=== PATIENT | female | born 1955 | race Caucasian/White ===

== ENCOUNTER 2016-11-08 12:51 | Emergency (ER) | payer MEDICARE, MEDICAID ==
[2016-11-08] MEDS: IPRATROPIUM/ALBUTEROL (0.5MG/3MG) NEB INH ONE (13:04)
--- NOTE | 2016-11-08 13:34 | Emergency Department Record ---
History of Present Illness - General Chief Complaint: Difficulty Breathing Stated Complaint: JOSH Time Seen by Provider: 11/08/16 13:30 Source: Patient Mode of Arrival: Ambulatory Limitations: No limitations - History of Present Illness Initial Comments: 60 yo female presents with cough, congestion, wheezing, weakness, diarrhea since . She has a history of COPD in the past. She tried her home treatments but her wheezing continued. NO fever. NO chest pain. She has been coughing up somewhat greenish sputum. No blood. MD Complaint: Cough, Shortness of breath Onset/Timin -: Hour(s) Severity: Moderate Consistency: Getting worse Improves With: Bronchodilators, Rest, Upright position Worsens With: Coughing, Lying flat Known History Of: COPD Associated Symptoms: Cough, Sputum production Treatments Prior to Arrival: Bronchodilator - Related Data Home Oxygen Therapy: No Home Medications Medication Instructions Recorded Confirmed Last Taken Albuterol Sulfate [Proair Hfa] 1 - 2 puff IH .EVERY 4-6 HOURS PRN 06/17/1511/0811/08/16 Benazepril HCl [Lotensin] 20 mg PO DAILY 06/17/15 11/08/16 11/08/16 Duloxetine HCl [Cymbalta] 60 mg PO DAILY 06/17/15 11/08/16 11/08/16 Levothyroxine Sodium [Synthroid] 25 mcg PO DAILY 06/17/15 11/08/16 11/08/16 Mometasone/Formoterol [Dulera 200 8.8 gm IH DAILY 06/17/15 11/08/16 11/08/16 Mcg/5 Mcg Inhaler] Tiotropium [place] [Spiriva] 18 mcg IH DAILY 06/17/15 11/08/16 11/08/16 Celecoxib [Celebrex] 100 mg PO DAILY cap 04/14/16 11/08/16 11/08/16 Hydrocodone/Acetaminophen [Shepherd 1 tab PO Q6H PRN 11/08/16 11/08/16 11/08/16 10mg/325mg] Previous Rx's Medication Instructions Recorded Albuterol Sulfate 0.083% [Neb] 3 ml NEB .EVERY 4-6 HOURS PRN #30 11/08/16 ml Azithromycin [Zithromax] 250 mg PO DAILY #4 tab 11/08/16 Benzonatate [Tessalon] 1 cap PO Q8H PRN #20 cap 11/08/16 Prednisone [Prednisone 20Mg] 20 mg PO BID #10 tab 11/08/16 Allergies Allergy/AdvReac Type Severity Reaction Status Date / Time amoxicillin trihydrate AdvReac Intermediate DIARRHEA Verified 11/08/16 13:01 [From Augmentin] ibuprofen [From Motrin] AdvReac Intermediate SWELLING Verified 11/08/16 13:01 (GENERAL) potassium clavulanate AdvReac Intermediate DIARRHEA Verified 11/08/16 13:01 [From Augmentin] Travel Screening - Travel/Exposure Within Last 30 Days Have you traveled within the last 30 days?: No - Travel/Exposure Within Last Year Have you traveled outside the [place] in the last year?: No - Additonal Travel Details Have you been exposed to anyone with a communicable illness?: No - Travel Symptoms Symptom Screening: None Review of Systems Constitutional: Reports: Chills, Fever, Malaise, Weakness Eyes: Denies: Eye discharge, Eye pain, Photophobia, Vision change ENT: Reports: Congestion Respiratory: Reports: Cough, Dyspnea, Wheezes Cardiovascular: Denies: Chest pain, Palpitations, Syncope Endocrine: Reports: Fatigue Gastrointestinal: Reports: Diarrhea. Denies: Abdominal pain, Vomiting Genitourinary: Denies: Dysuria, Hematuria, Urgency Musculoskeletal: Denies: Arthralgia, Back pain, Myalgia, Neck pain Skin: Denies: Bruising, Change in color, Rash Neurological: Denies: Headache, Numbness, Tremors, Vertigo, Weakness Psychiatric: Denies: Anxiety Hematological/Lymphatic: Denies: Blood Clots, Easy bleeding, Easy bruising, Swollen glands Past Medical History - SOCIAL HISTORY Smoking Status: Heavy tobacco smoker (>10/day) Alcohol Use: None Drug Use: None - RESPIRATORY Hx Respiratory Disorders: Yes Hx Asthma: Yes (CONTROLLED) Hx COPD: Yes - CARDIOVASCULAR Hx Cardio Disorders: Yes Hx Edema: Yes Hx Hypertension: Yes Comment:: SEEN AT [facility] 08/16/19 FOR PAIN IN RT SHOULDER AND BACK RULED GALLBLADDER - NEURO Hx Neuro Disorders: No - GI Hx GI Disorders: Yes Hx Abdominal Pain: Yes (SEEN AT [facility] FOR GB ATTACK) - Hx Genitourinary Disorders: Yes Hx Bladder Problem: Yes (bladder sling) Comment:: STILL LEAKING WITH COUGH - ENDOCRINE Hx Endocrine Disorders: Yes Hx Thyroid Disease: Yes - MUSCULOSKELETAL Hx Musculoskeletal Disorders: Yes Hx Arthritis: Yes (HANDS KNEES HIPS) Comment:: STILL WEAKNESS HANDS - PSYCH Hx Psych Problems: No - HEMATOLOGY/ONCOLOGY Hx Hematology/Oncology Disorders: No Family Medical History Any Significant Family History?: No Physical Exam - General General Appearance: Alert, Oriented x3, Cooperative, No acute distress Limitations: No limitations - Head Head exam: Normal inspection - Eye Eye exam: Normal appearance, PERRL. negative: Conjunctival injection - ENT ENT exam: Normal exam Ear exam: Normal external inspection Nasal Exam: Normal inspection Mouth exam: Normal external inspection Teeth exam: Normal inspection Throat exam: Normal inspection - Neck Neck exam: Normal inspection, Full ROM. negative: Tenderness - Respiratory Respiratory exam: Decreased breath sounds, Rhonchi, Wheezes. negative: Normal lung sounds bilaterally, Chest wall tenderness, Respiratory distress - Cardiovascular Cardiovascular Exam: Regular rate, Normal rhythm, Normal heart sounds Peripheral Pulses: 2+: Radial (R), Radial (L) - GI/Abdominal GI/Abdominal exam: Soft. negative: Guarding, Tenderness - Rectal Rectal exam: Deferred - exam: Deferred - Extremities Extremities exam: Normal inspection, Full ROM, Normal capillary refill. negative: Pedal edema, Tenderness - Back Back exam: Reports: Normal inspection, Full ROM. Denies: Muscle spasm, Rash noted, Tenderness - Neurological Neurological exam: Alert, Normal gait, Oriented X3 - Psychiatric Psychiatric exam: Normal affect, Normal mood. negative: Agitated, Anxious - Skin Skin exam: Dry, Intact, Normal color, Warm Course Vital Signs 11/08/16 11/08/16 13:05 13:06 Temperature 97.9 F Pulse Rate 100 H 88 Respiratory 24 24 Rate Blood Pressure 100/75 Pulse Ox 97 96 - Reevaluation(s) Reevaluation #1: EKG NSR, intervals normal, axis normal, ST no acute changes. No changes from the prior 11/08/16 13:34 Reevaluation #2: The patient is greatly improved She is up ambulating without shortness of breath She still has some occasional cough but this is dramatically better since the Duoneb treatments and steroids She is not hypoxic. She will be provided Zithromax in the ED, and and a prescription for Prednisonse , Tessalon and her Albuterol nebulized. The patient was informed of her labs and the need to see her doctor this week for a recheck and to stay hydrated 11/08/16 15:37 11/08/16 15:50 Medical Decision Making - Lab Data Result diagrams: 11/08/16 13:40 11/08/16 13:40 Disposition Disposition: Discharge Clinical Impression: COPD exacerbation Disposition: Home, Self-Care Condition: (1) Good Instructions: COPD Exacerbation, [employer] (GEN) Additional Instructions: Call your doctor tomorrow for close follow up Return immediately if you have fever, shortness of breath or pain Take the Zithromax, Prednisone, and Tessalon as directed. Prescriptions: Albuterol Sulfate 0.083% [Neb] 3 ml NEB .EVERY 4-6 HOURS PRN #30 ml PRN Reason: Difficulty In Breathing Prednisone [Prednisone 20Mg] 20 mg PO BID #10 tab Benzonatate [Tessalon] 1 cap PO Q8H PRN #20 cap PRN Reason: Cough Azithromycin [Zithromax] 250 mg PO DAILY #4 tab Forms: Patient Portal Access Time of Disposition: 15:44
[2016-11-08] MEDS: ALBUTEROL SULFATE (0.083%) 2.5 MG/3 ML NEB INH ONE (13:42)
[2016-11-08] MEDS: METHYLPREDNISOLONE PF 125MG/VIAL IVP SCH (13:47)
[2016-11-08 13:52] LABS: HEMATOCRIT 34.7 % (35.0-47.0); HEMOGLOBIN 11.9 gm/dl (11.6-16.0); MEAN CELL VOLUME 90.1 fl (81-97); MEAN CORPUSCULAR HEMOGLOBIN 30.9 pg (27-33); MEAN CORPUSCULAR HGB CONC 34.3 g/dl (32-36); MEAN PLATELET VOLUME 9.5 fl (7.4-10.4); PLATELET COUNT 379 K/uL (130-400); RED BLOOD COUNT 3.85 M/uL (3.80-5.40); RED CELL DISTRIBUTION WIDTH 16.6 % (11.5-14.5); WHITE BLOOD COUNT W/O DIFF 12.6 K/uL (4.2-12.2)
[2016-11-08 14:05] LABS: ALB/GLOB RATIO 1.1 (1.1-1.8); ALBUMIN 3.9 gm/dL (3.5-5.0); ALKALINE PHOSPHATASE 139 U/L (38-126); ALT/SGPT 71 U/L (9-52); ANION GAP 9.1 (7-16); AST/SGOT 36 U/L (14-36); BLOOD UREA NITROGEN 37 mg/dL (7-17); CARBON DIOXIDE 20.9 mmol/L (22-30); CREATININE 1.3 mg/dL (0.52-1.04); EST GLOMERULAR FILTRATION RATE 45 ml/min; GLUCOSE,RANDOM 105 mg/dL (70-110); TOTAL PROTEIN 7.4 gm/dL (6.3-8.2)
[2016-11-08 14:09] LABS: INR 0.97; PARTIAL THROMBOPLASTIN TIME 25.4 SECONDS (24.5-39.1)
[2016-11-08 14:16] LABS: PLATELET ESTIMATE NORMAL (NORMAL)
[2016-11-08 14:47] LABS: TROPONIN I < 0.012 ng/mL (0.00-0.034)
[2016-11-08] MEDS: AZITHROMYCIN 500 MG TABLET PO ONE (15:52)
--- NOTE | 2016-11-11 15:07 | RADIOLOGY REPORT ---
EXAM: CHEST HISTORY: PRODUCTIVE COUGH AND SHORTNESS OF BREATH. TECHNIQUE: Two views of the chest were obtained. Comparison: 04/14/16. FINDINGS: The heart is not enlarged and there is no mediastinal mass. No acute infiltrate or vascular congestion. Chronic interstitial changes are again seen similar to the previous study. IMPRESSION: 1. NO ACUTE CARDIAC OR PULMONARY ABNORMALITY. 2. CHRONIC INTERSTITIAL LUNG CHANGES ARE SIMILAR TO THE PATIENT'S PREVIOUS STUDY. JOB NUMBER: [id number] MTDD
== END 2016-11-08 16:01 | disposition home or self-care (01) ==
LOC: ER 12:51
DX: J44.1 Chronic obstructive pulmonary disease with (acute) exacerbation (principal); R53.1 Weakness; F17.210 Nicotine dependence, cigarettes, uncomplicated; R19.7 Diarrhea, unspecified
CPT/HCPCS: 71020; 80053; 83880; 84484; 85027; 85610; 85730; 93005; 93010; 94640; 96374; 99284; J2930; J7613